=== PATIENT | male | born 1995 | race Caucasian/White ===

== ENCOUNTER 2018-04-29 16:00 | Emergency (ER) | payer BC ==
[~2018-04-29] VITALS: Ht 185.4 cm; Wt 90.9 kg
[~2018-04-29 16:00] MED LIST: ALLEGRA30 MG PO; ALLEGRA60 MG PO; AMOXICILLIN 50500 MG PO; COMBIVENT INH14.7 GM IH; FLECAINIDE150 MG PO; NADOLOL80 MG PO; SINGULAIR; SUDAFED 12HR120 MG PO; TYLENOL #3 301 UDTAB PO; TYLENOL 500MG500 MG PO
[2018-04-29 16:04] VITALS: TEMP 98.3
[2018-04-29] MEDS ORDERED: DITROPAN XL10 MG PO (16:18)
[2018-04-29 16:41] LABS: BASO # 0.1 (0.0-0.2); BASO % 0.5 % (0.0-2.0); EOS % 0.4 % (0-4.0); GRAN # 7.3 (1.4-6.5); GRAN % 75.9 % (42.2-75.2); HEMATOCRIT 43.2 % (42.0-52.0); HEMOGLOBIN 15.3 g/dl (13.5-18.0); LYMPH # 1.5 (1.2-3.4); MEAN CELL VOLUME 89 fl (80.0-100.0); MEAN CORPUSCULAR HEMOGLOBIN 32 pg (27.0-31.0); MEAN CORPUSCULAR HGB CONC 35 g/dl (33.0-37.0); MEAN PLATELET VOLUME 10.2 fl (7.4-10.4); MONO # 0.7 (0.1-0.6); MONO % 6.8 % (1.7-9.3); PLATELET COUNT 183 K/mm3 (130-400); RED BLOOD COUNT 4.84 M/mm3 (4.20-5.60); REDCELL DISTRIBUTION WIDTH-CV 12.2 % (11.5-14.5)
[2018-04-29 16:52] LABS: ALANINE AMINOTRANSFERASE 25 U/L (21-72); ALBUMIN 4.3 gm/dL (3.5-5.0); ALKALINE PHOSPHATASE 51 U/L (50-136); ANION GAP 13 mmol/L (7-16); AST,SGOT 16 U/L (15-37); BILIRUBIN,TOTAL 0.8 mg/dL (0.0-1.0); BLOOD UREA NITROGEN 17 mg/dL (9-20); CALCIUM 9.1 mg/dL (8.4-10.2); CARBON DIOXIDE 25 mmol/L (22-30); CHLORIDE 101 mmol/L (98-107); CREATININE, serum 1.08 mg/dL (0.66-1.25); GLUCOSE 116 mg/dL (74-106); POTASSIUM 3.7 mmol/L (3.4-5.0); SODIUM 139 mmol/L (137-145)
[2018-04-29 16:54] LABS: C-REACTIVE PROTEIN < 0.5 mg/dL (0.0-0.9)
[2018-04-29 17:02] LABS: TROPONIN-I < 0.012 ng/mL (0.000-0.034)
[2018-04-29 18:42] VITALS: BP 117/64; PULSE 71
== END 2018-04-29 18:42 | disposition home or self-care (01) ==
LOC: COL.ER 16:00
PROVIDERS: Emergency Medicine
DX: R00.0 Tachycardia, unspecified (principal); F17.210 Nicotine dependence, cigarettes, uncomplicated; F12.90 Cannabis use, unspecified, uncomplicated; Z98.890 Other specified postprocedural states

== ENCOUNTER → 2020-03-29 | Outpatient (CLI) | payer BC ==
[~2020-03-29] MED LIST changes: +DITROPAN XL10 MG PO
== END ==
LOC: COL.LAB 09:15
DX: J30.1 Allergic rhinitis due to pollen (principal)

== ENCOUNTER 2022-06-25 11:23 | Emergency (ER) | payer OTHER ==
[~2022-06-25] VITALS: Ht 185.4 cm; Wt 100.0 kg
[2022-06-25 12:00] VITALS: TEMP 98.3
[2022-06-25 14:01] LABS: COLLECTION METHOD CLEAN CATCH
[2022-06-25 14:14] LABS: PH 5.5 (5.0-8.5); URINE APPEARANCE Clear (CLEAR/HAZY); URINE BLOOD Negative (NEGATIVE); URINE COLOR Yellow (YELLOW); URINE GLUCOSE Negative (NEGATIVE); URINE KETONE Negative (NEGATIVE); URINE NITRATE Negative (NEGATIVE); URINE PROTEIN(semi-quant) Negative (NEGATIVE); URINE UROBILINOGEN 0.2 E.U/dL (0.2-1.0)
[2022-06-25 14:22] LABS: MUCOUS Present (NOT PRESENT); SQUAMOUS EPITHELIAL None Seen /hpf (0-10); URINE BACTERIA None Seen /hpf (NONE SEEN); URINE RBC 0-2 /hpf (0-2)
[2022-06-25] MEDS ORDERED: NORCO 325 MG-51 TAB PO (15:31)
[2022-06-25 15:40] VITALS: BP 136/91; PULSE 45
== END 2022-06-25 15:40 | disposition home or self-care (01) ==
LOC: COL.ER 11:23
PROVIDERS: Nurse Practitioner
DX: N45.1 Epididymitis (principal)
CPT/HCPCS: J0696